=== PATIENT | female | born 2005 | race Caucasian/White ===

== ENCOUNTER 2025-04-12 00:16 | Emergency (ER) | payer MEDICAID ==
[~2025-04-12] VITALS: Ht 157.5 cm; Wt 68.0 kg
[2025-04-12 00:27] VITALS: O2SAT 98
[2025-04-12 01:01] LABS: BASOPHILS % 0.4 % (0.0-2.0); EOSINOPHILS % 1.5 % (0.0-5.0); HEMATOCRIT. 32.1 % (36.0-48.0); HEMOGLOBIN. 11.0 g/dL (12.0-16.0); LYMPHOCYTES % 20.2 % (20.0-50.0); MEAN PLATELET VOLUME 9.2 fl (7.4-10.4); MONOCYTES % 7.4 % (2.0-8.0); NEUTROPHILS % 70.5 % (40.0-76.0); PLATELET 332 x1000/uL (130-400); RED BLOOD CELL COUNT 3.77 mill/uL (4.2-5.4); RED CELL DISTRIBUTION WIDTH 14.8 % (11.6-14.6)
[2025-04-12 01:14] LABS: CREATININE 0.6 mg/dL (0.6-1.0)
[2025-04-12 01:15] LABS: UREA NITROGEN BLOOD < 5 mg/dL (9-23)
[2025-04-12 01:33] LABS: B-HCG QUANTITATIVE 169327 mIU/mL (<6)
[2025-04-12 04:09] VITALS: BP 107/66; PULSE 81; RESP 16; TEMP 36.9; O2SAT 100
== END 2025-04-12 04:19 | disposition home or self-care (01) ==
LOC: ER 00:16
DX: O20.0 Threatened abortion (principal); O30.002 Twin pregnancy, unspecified number of placenta and unspecified number of amniotic sacs, second trimester; O41.02X0 Oligohydramnios, second trimester, not applicable or unspecified; Z3A.17 17 weeks gestation of pregnancy
CPT/HCPCS: 36415; 76805; 76810; 80048; 81025; 84702; 85025; 86850; 86900; 99284

== ENCOUNTER 2025-04-25 11:57 | Emergency (ER) | payer MEDICAID ==
[~2025-04-25] VITALS: Ht 160 cm; Wt 73.0 kg
[2025-04-25 11:58] VITALS: O2SAT 97
[2025-04-25 13:12] LABS: CREATININE 0.6 mg/dL (0.6-1.0); UREA NITROGEN BLOOD < 5 mg/dL (9-23)
[2025-04-25 13:13] LABS: ASPARTATE AMINOTRANSFERASE 18 IU/L (<34); BILIRUBIN DIRECT 0.1 mg/dL (<=3.0); BILIRUBIN TOTAL 0.5 mg/dL (0.1-1.0); PROTEIN TOTAL 6.6 g/dL (6.0-8.3)
[2025-04-25 15:20] LABS: HEMATOCRIT. 29.6 % (36.0-48.0); HEMOGLOBIN. 9.8 g/dL (12.0-16.0); MEAN PLATELET VOLUME 9.6 fl (7.4-10.4); PLATELET 323 x1000/uL (130-400); RED BLOOD CELL COUNT 3.41 mill/uL (4.2-5.4); RED CELL DISTRIBUTION WIDTH 14.2 % (11.6-14.6)
[2025-04-25] MEDS: SODIUM CHLORIDE 0.9% 1,000 ML IV ONE (19:03)
[2025-04-25 19:12] VITALS: BP 99/62; PULSE 92; RESP 20; TEMP 36.9; O2SAT 98
[2025-04-25 19:32] LABS: BAND% 2.0 % (1.0-6.0); EOSINOPHILS % MANUAL 2.0 % (0.0-5.0); LYMPHOCYTES % MANUAL 9.0 % (20.0-60.0); MONOCYTES % MANUAL 4.0 % (2.0-8.0); NEUTROPHILS % MANUAL 83.0 % (45.0-75.0); PLATELET ESTIMATE NORMAL
== END 2025-04-25 19:21 | disposition home or self-care (01) ==
LOC: ER 12:18
DX: O44.02 Complete placenta previa NOS or without hemorrhage, second trimester (principal); O99.012 Anemia complicating pregnancy, second trimester; R10.20 Pelvic and perineal pain unspecified side; O30.002 Twin pregnancy, unspecified number of placenta and unspecified number of amniotic sacs, second trimester; Z3A.19 19 weeks gestation of pregnancy
CPT/HCPCS: 99285; 96360; 76805; 80076; 80048; 84702; 85014; 85018; 85025; 86850; 86900; 86901; 36415; 76810; J7030